=== PATIENT | female | born 1970 | race Caucasian/White ===

== ENCOUNTER 2017-03-03 16:28 | Emergency (ER) | payer OTHER ==
--- NOTE | ~2017-03-03 | CT2 ---
[facility] A Service of [facility] RADIOLOGY TEXT RESULTS PATIENT: TEN CARROLL LOCATION: SUE : 74 UNIT #: [id number] AGE: [address]: Sofi Addison MD SEX: F ORDER DR: [id number] [facility] [address] [place], [place] [address] [id number] MR#: [id number] Acc #: [id number] NAME: TEN CARROLL : 1970 SEX: F STUDY DATE/TIME: 03/03/2017 22:29 UNIT: [facility] ROOM: STUDY DESCRIPTION: CT Abd and Pelv W Cont Attending Physician: Sofi Addison M.D. Ordering Physician: Sofi Addison M.D. Primary Care Physician: Primary Care Physician No MEDICAL IMAGING REPORT This report is preliminary unless electronic signature is present EXAM CT abdomen and pelvis, 03/03 22:29 hours INDICATION Nausea, vomiting and abdominal pain for the last 2 days. TECHNIQUE Axial images were obtained through the abdomen and pelvis following IV contrast administration. Multiplanar reformats were obtained. This CT exam was performed with one or more of the following radiation dose reduction techniques: automatic exposure control, adjustment of mA and/or kV according to patient size, and iterative reconstruction. COMPARISON No comparison. FINDINGS ABDOMEN: Lung bases are clear. Gallbladder unremarkable. No biliary obstruction. The solid abdominal organs are normal. The unopacified GI tract is normal. No free fluid or adenopathy identified. PELVIS: The GI tract, including the appendix, is normal. The bladder is normal. Solid pelvic organs are unremarkable. No free fluid. IMPRESSION 1. No acute findings in the abdomen or pelvis. 2. Normal unopacified GI tract, including the appendix. 3. Normal nonobstructed kidneys. Dictated by... Roly Houston Jr., M.D. [facility] A Service of [facility] RADIOLOGY TEXT RESULTS PATIENT: TEN CARROLL LOCATION: SUE : 74 UNIT #: [id number] AGE: [address]: Sofi Addison MD SEX: F ORDER DR: THIS IS AN ELECTRONICALLY VERIFIED REPORT Roly Houston Jr., M.D. at 03/04/2017 9:20 PM NICOLE/shaunna TD: 03/04/2017 11:17 JOB #: [id number] MEDICAL IMAGING REPORT Page 1 of 1 COPY
--- NOTE | ~2017-03-03 | EKG ---
PATIENT: TEN CARROLL UNIT #: [id number] Ventricular Rate: 81 BPM Atrial Rate: 81 BPM P-R Interval: 134 ms QRS Duration: 60 ms Q-T Interval: 378 ms QTC Calculation(Bezet): 439 ms P Alvord: 0 degrees Calculated R [place]: 28 degrees Calculated T [place]: 46 degrees Diagnosis Line: Normal sinus rhythm Diagnosis Line: Normal ECG Diagnosis Line: No previous ECGs available Diagnosis Line: Confirmed by JOSÉ MIGUEL KELLOGG MD ([id number]) on Diagnosis Line: 03/03/2017 10:23:09 PM INTERPRETING MD: GUNNAR
[~2017-03-03 16:28] MED LIST: ALBUTEROL17 GM; ALBUTEROL17 GM INH; ALL DAY ALLERGY10 M2 PO; AZITHROMYCIN250 MG PO; BACTROBAN15 GM TOP; BENTYL20 MG PO; CLINDAMYCIN HCL1 GM PO; GUAIFENESIN400 M1 PO; IMODIUM2 MG PO; LORTAB 5/500 TA1 TA1 PO; PERCOCET5/325 PO; PHENERGAN25 M1 PO; PREDNISONE50 MG PO; SILVADENE TOP; ZOVIRAX800 MG PO
[2017-03-03 17:59] LABS: BASOPHIL% 0.6 % (0-2.5); EOSINOPHIL# 0.3 X10e3 (0-0.7); EOSINOPHIL% 5.1 % (0.0-7.0); HEMATOCRIT 43.7 % (35.0-45.0); HEMOGLOBIN 14.4 gm/dL (12.0-16.0); LYMPHOCYTE# 1.1 X10e3 (1.0-3.5); LYMPHOCYTE% 19.3 % (17.0-45.0); MEAN CELL VOLUME 94.2 FL (83-96); MEAN CORPUSCULAR HGB CONC 32.9 g/dL (30-36); MEAN PLATELET VOLUME 7.7 FL (6.5-11.5); MONOCYTE# 0.3 X10e3 (0-1.0); MONOCYTE% 5.8 % (3.0-12.0); NEUTROPHIL# 4.1 X10e3 (1.5-7.1); NEUTROPHIL% 69.2 % (40-75); PLATELET COUNT 212 X10e3 (140-420); RED BLOOD COUNT 4.64 X10e (3.90-5.30); RED CELL DISTRIBUTION WIDTH 13.8 % (11.0-15.5); WHITE BLOOD COUNT 5.9 X10e3 (4.0-10.5)
[2017-03-03 18:03] LABS: DIFF IND NO
[2017-03-03 18:21] LABS: ALBUMIN SERUM 4.2 g/dL (3.5-5.0); BILIRUBIN, DIRECT 0.2 mg/dL (0.0-0.2); BILIRUBIN,INDIRECT 0.8 mg/dL (0.0-0.9); BUN/CREATININE RATIO 7.77; CREATININE SERUM 0.9 mg/dL (0.6-1.4); GLOM FILT RATE Estimated 77.8 mL/min (>60); POTASSIUM 3.5 mmol/L (3.5-5.1); PROTEIN TOTAL SERUM 7.4 g/dL (6.0-8.3)
[2017-03-03 20:10] LABS: URINE SOURCE CLEAN CATCH
[2017-03-03 20:23] LABS: URINE APPEARANCE CLEAR; URINE BILIRUBIN NEG (NEG); URINE BLOOD NEG (NEG); URINE COLOR YELLOW; URINE GLUCOSE NEG (NEG); URINE KETONE NEG (NEG); URINE LEUKOCYTE ESTERASE NEG (NEG); URINE NITRATE NEG (NEG); URINE PROTEIN NEG (NEG); URINE SPECIFIC GRAVITY 1.008 (1.003-1.035); URINE UROBILINOGEN 0.2 MG/DL (NEG)
[2017-03-03 20:26] LABS: AMPHETAMINE POS (NEG); BARBITURATES NEG (NEG); BENZODIAZEPINES NEG (NEG); COCAINE NEG (NEG); MARIJUANA NEG (NEG); OPIATES NEG (NEG); TRICYCLIC ANTIDEPRESSANTS NEG (NEG); U METHADONE NEG (NEG)
[2017-03-03 20:28] LABS: CULTURE INDICATED? NO
[2017-03-03 20:41] LABS: POC - CKMB <1.0 ng/mL (0.0-7.9); POC - TROPONIN <0.05 ng/mL (<=0.05)
[2017-03-03 20:52] LABS: POC - CKMB <1.0 ng/mL (0.0-7.9); POC - TROPONIN <0.05 ng/mL (<=0.05)
[2017-03-06 01:44] LABS: CHLAMYDIA TRACH Not Detected (Not Detected); N GONOR Not Detected (Not Detected)
== END 2017-03-04 00:01 | disposition home or self-care (01) ==
LOC: CED 16:28
PROVIDERS: Emergency Medicine
DX: R10.84 Generalized abdominal pain (principal); F19.939 Other psychoactive substance use, unspecified with withdrawal, unspecified; R42 Dizziness and giddiness; R11.2 Nausea with vomiting, unspecified; R53.1 Weakness; R68.83 Chills (without fever); J45.909 Unspecified asthma, uncomplicated; G40.909 Epilepsy, unspecified, not intractable, without status epilepticus; F17.210 Nicotine dependence, cigarettes, uncomplicated; Z88.8 Allergy status to other drugs, medicaments and biological substances; Z88.0 Allergy status to penicillin; Z88.2 Allergy status to sulfonamides; Z88.1 Allergy status to other antibiotic agents
CPT/HCPCS: 36415; 74177; 80048; 80076; 80307; 81003; 82553; 84484; 85025; 86592; 87491; 87591; 87808; 87905; 93005; 96360; 99284; Q9967